=== PATIENT | male | born 1990 | race Caucasian/White ===

== ENCOUNTER 2023-03-13 15:56 | Inpatient (IN) | payer OTHER ==
[~2023-03-13] VITALS: Ht 167.6 cm; Wt 91.7 kg
[2023-03-13 17:24] LABS: BASOPHILS # (AUTO) 0.05 K/uL (0.00-0.20); BASOPHILS % (AUTO) 0.5 % (0.0-5.0); EOSINOPHILS % (AUTO) 3.7 % (0.0-8.0); HEMATOCRIT 42.9 % (42-54); IMMATURE GRANULOCYTE ABSOLUTE 0.04 K/uL (0-1); LYMPHOCYTES # (AUTO) 4.1 K/uL (1.0-4.8); MEAN CORPUSCULAR HEMOGLOBIN 30.9 pg (27.0-33.0); MEAN CORPUSCULAR HGB CONC 36.1 g/dL (32.0-36.0); MEAN CORPUSCULAR VOLUME 85.5 fL (79-99); MONOCYTES # (AUTO) 1.3 K/uL (0.1-1.0); MONOCYTES % (AUTO) 11.7 % (3.0-13.0); NEUTROPHILS # (AUTO) 4.9 K/uL (1.8-7.7); NEUTROPHILS % (AUTO) 45.7 % (40.0-77.0); PLATELET COUNT (AUTO) 257 K/uL (130-400); RED BLOOD CELL COUNT(AUTO) 5.02 MIL/uL (4.50-6.20); RED CELL DISTRIBUTION WIDTH 13.1 % (11.0-15.5); WHITE BLOOD COUNT (AUTO) 10.8 K/uL (4.8-10.8)
[2023-03-13 17:34] LABS: CREATININE 0.9 mg/dL (0.5-1.5)
[2023-03-13 17:38] LABS: ALBUMIN 3.6 g/dL (3.5-5.0); BILIRUBIN,TOTAL 0.4 mg/dL (0.2-1.0); TOTAL PROTEIN, SERUM 7.6 g/dL (6.0-8.3)
[2023-03-13 18:01] LABS: APPEARANCE,URINE CLEAR (CLEAR); BILIRUBIN,URINE NEGATIVE (NEGATIVE); COLOR,URINE LIGHT-YELLOW (YELLOW); GLUCOSE, URINE (UA) NEGATIVE (NEGATIVE); KETONES,URINE NEGATIVE (NEGATIVE); LEUKOCYTE ESTERASE ,URINE NEGATIVE Leu/uL (NEGATIVE); NITRATE,URINE NEGATIVE (NEGATIVE); OCCULT BLOOD,URINE NEGATIVE (NEGATIVE); PH,URINE 5.5 (5.0-8.0); PROTEIN,URINE NEGATIVE (NEGATIVE); UROBILINOGEN,URINE 0.2 mg/dL (0.2-1.0)
[2023-03-13 18:02] LABS: ADD UA MICROSCOPIC YES
[2023-03-13 18:04] LABS: MUCUS,URINE RARE LPF (None Seen); SQUAMOUS EPITHELIAL CELL,UR RARE /HPF (0-2); WBC,URINE 0-1 /HPF (0-1)
[2023-03-13] MEDS: CLINDAMYCIN IVPB 600MG/50ML 50 ML IV SCH (20:47)
[2023-03-13] MEDS ORDERED: KETOROLAC 30MG VIAL (30MG/ML) IVP ONE (21:00)
[2023-03-13] MEDS ORDERED: HYDROCODONE/ACETAMINOPHEN 5/325 MG TAB PO ONE (21:00)
[2023-03-13] MEDS ORDERED: ACETAMINOPHEN 325 MG TAB PO PRN ×2 (22:00)
[2023-03-13] MEDS ORDERED: ONDANSETRON 4MG INJ IV PRN (22:00)
[2023-03-13] MEDS ORDERED: MORPHINE 4 MG SYG IV PRN (22:00)
[2023-03-13] MEDS: LACTATED RINGERS 1000ML 1,000 ML IV SCH (22:11)
[2023-03-13] MEDS: NICOTINE 21 MG/ 24 HR PATCH TD SCH (23:57)
[2023-03-14] VITALS (21 sets, daily range): BP systolic 92–158; BP diastolic 40–82; PULSE 64–93; RESP 15–20
[2023-03-14] MEDS: CLINDAMYCIN IVPB 600MG/50ML 50 ML IV SCH (03:07)
[2023-03-14] MEDS ORDERED: ZOSYN 3.375GM+NS 50ML 50 ML IVPB SCH (05:00)
[2023-03-14] MEDS: MORPHINE 2 MG SYG IV PRN ×4 (06:36→20:21)
[2023-03-14 06:42] LABS: BASOPHILS # (AUTO) 0.05 K/uL (0.00-0.20); BASOPHILS % (AUTO) 0.7 % (0.0-5.0); EOSINOPHILS # (AUTO) 0.34 K/uL (0.00-0.70); EOSINOPHILS % (AUTO) 4.6 % (0.0-8.0); HEMATOCRIT 41.7 % (42-54); IMMATURE GRANULOCYTE ABSOLUTE 0.03 K/uL (0-1); LYMPHOCYTES # (AUTO) 2.9 K/uL (1.0-4.8); LYMPHOCYTES % (AUTO) 39.2 % (21.0-51.0); MEAN CORPUSCULAR HEMOGLOBIN 30.4 pg (27.0-33.0); MEAN CORPUSCULAR HGB CONC 34.8 g/dL (32.0-36.0); MEAN CORPUSCULAR VOLUME 87.4 fL (79-99); MONOCYTES % (AUTO) 13.7 % (3.0-13.0); NEUTROPHILS # (AUTO) 3.1 K/uL (1.8-7.7); NEUTROPHILS % (AUTO) 41.4 % (40.0-77.0); PLATELET COUNT (AUTO) 199 K/uL (130-400); RED BLOOD CELL COUNT(AUTO) 4.77 MIL/uL (4.50-6.20); RED CELL DISTRIBUTION WIDTH 13.2 % (11.0-15.5); WHITE BLOOD COUNT (AUTO) 7.4 K/uL (4.8-10.8)
[2023-03-14 06:55] LABS: INR < 0.93 (0.85-1.15); PROTHROMBIN TIME 10.8 SEC (9.6-11.6)
[2023-03-14 06:57] LABS: PARTIAL THROMBOPLASTIN TIME 27.7 SEC (26.3-35.5)
[2023-03-14 07:02] LABS: CREATININE 0.8 mg/dL (0.5-1.5); POTASSIUM 3.8 mmol/L (3.5-5.1)
[2023-03-14] MEDS: FAMOTIDINE 20MG VIAL IV SCH ×2 (08:23→20:22)
[2023-03-14] MEDS: NICOTINE 21 MG/ 24 HR PATCH TD SCH ×2 (08:24)
[2023-03-14] MEDS ORDERED: VANCOMYCIN 1.75 GM/250 ML BAG 250 ML IV ONE (09:53)
[2023-03-14] MEDS ORDERED: VANCOMYCIN PROTOCOL PER PHARMACY IV SCH (10:00)
[2023-03-14] MEDS: LACTATED RINGERS 1000ML 1,000 ML IV SCH ×2 (11:40→20:15)
[2023-03-14] MEDS ORDERED: LIDOCAINE HCL-MPF 2% 10ML AMP IJ ONE (17:36)
[2023-03-14] MEDS ORDERED: MIDAZOLAM HCL 1 MG/ML 5ML VIAL ONE (17:37)
[2023-03-14] MEDS ORDERED: KETAMINE 50MG/ML SYRINGE 50 MG/ML DISP.SYRIN ONE (17:37)
[2023-03-14] MEDS ORDERED: MIDAZOLAM HCL 1 MG/ML 2ML VIAL ONE (17:53)
[2023-03-14] MEDS: ZOSYN 3.375GM+NS 50ML 50 ML IVPB SCH ×2 (20:23→20:29)
[2023-03-15] VITALS (7 sets, daily range): BP systolic 112–135; BP diastolic 49–78; PULSE 67–92; RESP 18–20; O2SAT 97–99
[2023-03-15] MEDS: VANCOMYCIN 1.25 GM/250 ML BAG 250 ML IV SCH ×2 (00:26→11:32)
[2023-03-15] MEDS ORDERED: MORPHINE 4 MG SYG IV PRN (02:30)
[2023-03-15] MEDS: HYDROCODONE/ACETAMINOPHEN 5/325 MG TAB PO PRN ×2 (04:00→15:47)
[2023-03-15] MEDS: ZOSYN 3.375GM+NS 50ML 50 ML IVPB SCH ×3 (04:01→20:23)
[2023-03-15 05:22] LABS: BASOPHILS # (AUTO) 0.05 K/uL (0.00-0.20); BASOPHILS % (AUTO) 0.7 % (0.0-5.0); EOSINOPHILS # (AUTO) 0.29 K/uL (0.00-0.70); HEMATOCRIT 42.7 % (42-54); IMMATURE GRANULOCYTE ABSOLUTE 0.04 K/uL (0-1); LYMPHOCYTES # (AUTO) 2.9 K/uL (1.0-4.8); LYMPHOCYTES % (AUTO) 40.7 % (21.0-51.0); MEAN CORPUSCULAR HEMOGLOBIN 30.1 pg (27.0-33.0); MEAN CORPUSCULAR HGB CONC 34.4 g/dL (32.0-36.0); MEAN CORPUSCULAR VOLUME 87.5 fL (79-99); MONOCYTES % (AUTO) 13.5 % (3.0-13.0); NEUTROPHILS # (AUTO) 2.9 K/uL (1.8-7.7); NEUTROPHILS % (AUTO) 40.5 % (40.0-77.0); PLATELET COUNT (AUTO) 220 K/uL (130-400); RED BLOOD CELL COUNT(AUTO) 4.88 MIL/uL (4.50-6.20); RED CELL DISTRIBUTION WIDTH 13.1 % (11.0-15.5); WHITE BLOOD COUNT (AUTO) 7.2 K/uL (4.8-10.8)
[2023-03-15 05:48] LABS: BILIRUBIN,TOTAL 0.3 mg/dL (0.2-1.0); CREATININE 0.8 mg/dL (0.5-1.5); POTASSIUM 3.7 mmol/L (3.5-5.1); TOTAL PROTEIN, SERUM 6.7 g/dL (6.0-8.3)
[2023-03-15] MEDS: FAMOTIDINE 20MG VIAL IV SCH ×2 (09:20→20:23)
[2023-03-15] MEDS: NICOTINE 21 MG/ 24 HR PATCH TD SCH (09:21)
[2023-03-15] MEDS ORDERED: COMPOUND IV REFRIGERATED 1 EACH IVSOLN MISC PRN (09:30)
[2023-03-15] MEDS ORDERED: COMPOUND IV MISC 1 EACH IVSOLN MISC PRN (09:30)
[2023-03-15] MEDS: MORPHINE 4 MG SYG IV PRN ×2 (09:38→20:09)
[2023-03-15] MEDS: VANCOMYCIN 1G/250ML KIT 250 ML IV SCH (22:13)
[2023-03-16] MEDS: HYDROCODONE/ACETAMINOPHEN 5/325 MG TAB PO PRN ×4 (02:13→21:59)
[2023-03-16 04:00] VITALS: BP 110/65; PULSE 67; RESP 20
[2023-03-16] MEDS: ZOSYN 3.375GM+NS 50ML 50 ML IVPB SCH ×3 (04:07→20:35)
[2023-03-16 04:12] LABS: HEMATOCRIT 44.1 % (42-54); MEAN CORPUSCULAR HEMOGLOBIN 30.1 pg (27.0-33.0); MEAN CORPUSCULAR HGB CONC 33.8 g/dL (32.0-36.0); MEAN CORPUSCULAR VOLUME 89.1 fL (79-99); RED BLOOD CELL COUNT(AUTO) 4.95 MIL/uL (4.50-6.20); RED CELL DISTRIBUTION WIDTH 13.1 % (11.0-15.5); WHITE BLOOD COUNT (AUTO) 7.3 K/uL (4.8-10.8)
[2023-03-16 04:20] LABS: CREATININE 0.8 mg/dL (0.5-1.5); POTASSIUM 3.9 mmol/L (3.5-5.1)
[2023-03-16] MEDS: VANCOMYCIN 1G/250ML KIT 250 ML IV SCH ×3 (05:23→22:55)
[2023-03-16 08:00] VITALS: BP 104/59; PULSE 100; RESP 18; O2SAT 97
[2023-03-16] MEDS: FAMOTIDINE 20MG VIAL IV SCH ×2 (08:39→20:35)
[2023-03-16] MEDS: NICOTINE 21 MG/ 24 HR PATCH TD SCH (08:39)
[2023-03-16] MEDS ORDERED: IBUP-2077 PO (09:06)
[2023-03-16 12:00] VITALS: BP 97/39; PULSE 70; RESP 18
[2023-03-16 16:00] VITALS: BP 103/59; PULSE 87; RESP 18
[2023-03-16 20:00] VITALS: BP 109/63; PULSE 88; RESP 18; O2SAT 97
[2023-03-16 23:58] VITALS: BP 92/51; PULSE 80; RESP 18
[2023-03-17 04:00] VITALS: BP 91/53; PULSE 69; RESP 17
[2023-03-17 04:20] LABS: BASOPHILS # (AUTO) 0.05 K/uL (0.00-0.20); BASOPHILS % (AUTO) 0.7 % (0.0-5.0); HEMATOCRIT 43.6 % (42-54); IMMATURE GRANULOCYTE ABSOLUTE 0.05 K/uL (0-1); LYMPHOCYTES # (AUTO) 3.2 K/uL (1.0-4.8); LYMPHOCYTES % (AUTO) 42.6 % (21.0-51.0); MEAN CORPUSCULAR HEMOGLOBIN 30.3 pg (27.0-33.0); MEAN CORPUSCULAR HGB CONC 34.9 g/dL (32.0-36.0); MEAN CORPUSCULAR VOLUME 86.9 fL (79-99); MONOCYTES # (AUTO) 0.9 K/uL (0.1-1.0); PLATELET COUNT (AUTO) 253 K/uL (130-400); RED BLOOD CELL COUNT(AUTO) 5.02 MIL/uL (4.50-6.20); WHITE BLOOD COUNT (AUTO) 7.5 K/uL (4.8-10.8)
[2023-03-17] MEDS: VANCOMYCIN 1G/250ML KIT 250 ML IV SCH (05:36)
[2023-03-17] MEDS: ZOSYN 3.375GM+NS 50ML 50 ML IVPB SCH (05:36)
[2023-03-17 06:56] LABS: CREATININE 0.8 mg/dL (0.5-1.5); POTASSIUM 4.3 mmol/L (3.5-5.1)
[2023-03-17 07:05] VITALS: O2SAT 99
[2023-03-17 08:00] VITALS: BP 98/58; PULSE 72; RESP 18
[2023-03-17] MEDS: NICOTINE 21 MG/ 24 HR PATCH TD SCH (08:11)
[2023-03-17] MEDS: FAMOTIDINE 20MG VIAL IV SCH (08:11)
[2023-03-17] MEDS: HYDROCODONE/ACETAMINOPHEN 5/325 MG TAB PO PRN (08:18)
[2023-03-17] MEDS ORDERED: DOXY100T21 PO (11:15)
[2023-03-17 11:25] VITALS: BP 101/58; PULSE 80; RESP 18
== END 2023-03-17 11:30 | disposition home or self-care (01) | DRG 603 ==
LOC: EDH 15:56 → EDHIP 15:57 → 4AH 03-14 13:45
PROVIDERS: ADMIT Internal Medicine; ATTEND Internal Medicine
PROC: 0X9K0ZZ Drainage of Left Hand, Open Approach (ICD-10-PCS; principal; 2023-03-14 18:00)
DX: L03.012 Cellulitis of left finger (principal); L02.512 Cutaneous abscess of left hand; L02.511 Cutaneous abscess of right hand; E66.9 Obesity, unspecified; E87.6 Hypokalemia; F17.210 Nicotine dependence, cigarettes, uncomplicated; L03.011 Cellulitis of right finger; B95.62 Methicillin resistant Staphylococcus aureus infection as the cause of diseases classified elsewhere; Z68.32 Body mass index [BMI] 32.0-32.9, adult
CPT/HCPCS: 36415; 73140; 80048; 80053; 80202; 81001; 83605; 83735; 84100; 84145; 85025; 85027; 85610; 85651; 85730; 86140; 86850; 86900; 86901; 87040; 87070; 87076; 87077; 87186; 87205; 93005; A6266; G0378; J1885; J2250; J2270; J2543; J3370; J3490; J7030; J7120; 3370; A4215; A4221; A4222; A4223; A4649; A4663; A4930